=== PATIENT | female | born 1935 | race Asian ===

== ENCOUNTER 2019-01-26 15:05 | Emergency (ER) | payer OTHER ==
[~2019-01-26] VITALS: Ht 172.7 cm; Wt 91.6 kg
[2019-01-26 15:05] VITALS: TEMP 99.1
[~2019-01-26 15:05] MED LIST: ABILIFY 10MG TAB PO; ABILIFY20 MG PO; ABILIFY5 MG PO; AMANTADINE100 M1 PO; ASEN5SUB2 SL; CLON1TAB18 PO; DEPAKENE250 MG PO; DEPAKOTE DR PO; DIVA250T2 PO; DIVA500T2 PO; DONE5TAB PO; FINGERSTIX; FSBS; FURO40TA93 PO; GABA300C2 PO; HALO1TAB3 PO; HALO50IN4 IM; HALO5INJ3 IM; HALO5TAB10 PO; HUMULIN N100 UNIT/M SC; LEXAPRO20 MG PO; LORA1TAB17 PO; LORA2INJ21 INJ; MEMA10TA2 PO; MIRTAZAPINE7.5 MG PO; NAC 600 PO; NOVOLIN R U-1001 ML IJ; OMEPRAZOLE20 M1 PO; PERCOCET1 TA3 PO; PHEN50CH2 PO; PHENYTOIN EX100 MG PO; POTASSIUM CHLO20 ME1 PO; RISP1TAB PO; RISP2TAB2 PO; RISP50IN IM; SAPHRIS2.5 MG SL; TRAZ50TA36 PO; XALATAN0.005 % OP; ZANTAC300 MG PO; ZIPR20IN IM
[2019-01-26 15:50] LABS: PLATELET COUNT 257 K/uL (152-353)
[2019-01-26 16:04] LABS: POTASSIUM 3.6 mmol/L (3.6-5.2)
[2019-01-26 16:30] VITALS: BP 135/66
[2019-01-26] MEDS ORDERED: PANTOPRAZOLE 40MG TA PO (18:17)
[2019-01-26] MEDS ORDERED: [UNRECOGNIZED DRUG - OTHER] PO (18:18)
[2019-01-26] MEDS ORDERED: AMANTADINE100 MG PO (18:19)
[2019-01-26] MEDS ORDERED: ROWEEPRA XR500 MG PO (18:19)
[2019-01-26] MEDS ORDERED: PHENYTOIN EX300 MG PO (18:20)
[2019-01-26] MEDS ORDERED: RISP0.5T2 PO (18:21)
[2019-02-19] MEDS ORDERED: ABILIFY 10MG TAB PO (08:13)
[2019-02-19] MEDS ORDERED: CHOL100034 PO (08:13)
== END 2019-01-26 16:50 | disposition other institution (70) ==
LOC: ED 15:12
PROVIDERS: Family Medicine
DX: F22 Delusional disorders (principal); F03.91 Unspecified dementia, unspecified severity, with behavioral disturbance; Z04.6 Encounter for general psychiatric examination, requested by authority
CPT/HCPCS: 80053; 81000; 85027; 93005; 99285